=== PATIENT | female | born 1990 | race Hispanic/Latino ===

== ENCOUNTER 2017-04-02 23:45 | Emergency (ER) | payer OTHER ==
[2017-04-03 00:04] VITALS: BMI 21.6
[2017-04-03] MEDS ORDERED: Sodium Chloride 0.9% 1,000 ML IV ONE (00:04)
[2017-04-03 00:15] LABS: BASO # 0.1 K/uL (0.0-0.2); EOS # 0.1 K/uL (0.0-0.7); HEMOGLOBIN 13.3 g/dL (11.0-16.0); MONO # 0.6 K/uL (0.0-0.8)
[2017-04-03 00:22] LABS: BASO % 0.7 % (0.0-2.0); EOS % 1.1 % (0.0-4.0); LYMPH # 1.8 K/uL (1.0-4.3); LYMPH % 23.1 % (20.0-40.0); MEAN CELL VOLUME 92.4 fL (81.0-99.0); MEAN CORPUSCULAR HEMOGLOBIN 31.2 pg (27.0-31.0); MEAN CORPUSCULAR HGB CONC 33.8 g/dL (33.0-37.0); MONO % 7.8 % (0.0-10.0); NEUT # 5.2 K/uL (1.8-7.0); NEUT % 67.3 % (50.0-75.0); RBC 4.27 Mil/uL (3.80-5.20); RED CELL DISTRIBUTION WIDTH 13.4 % (11.5-14.5); WHITE BLOOD COUNT 7.8 K/uL (4.8-10.8)
[2017-04-03 00:29] LABS: ALB/GLOB RATIO 1.7 (1.0-2.1); ALBUMIN 3.9 g/dL (3.5-5.0); ALT/SGPT 20 U/L (9-52); AST/SGOT 17 U/L (14-36); BLOOD UREA NITROGEN 17 mg/dL (7-17); CALCIUM 8.1 mg/dl (8.6-10.4); GFR AFRICAN-AMERICAN > 60; GFR NON-AFRICAN AMERICAN > 60; LIPASE 89 U/L (23-300)
[2017-04-03 00:31] LABS: SQUAMOUS EPITHIAL < 1 /hpf (0-5); URINE BILIRUBIN NEGATIVE (NEGATIVE); URINE BLOOD NEGATIVE (NEGATIVE); URINE CLARITY Clear (Clear); URINE COLOR Yellow (YELLOW); URINE GLUCOSE (UA) NORMAL (Normal); URINE LEUKOCYTE ESTERASE NEG Leu/uL (Negative); URINE NITRATE NEGATIVE (NEGATIVE); URINE PROTEIN NEGATIVE (NEGATIVE); URINE UROBILINOGEN NORMAL mg/dL (0.2-1.0)
[2017-04-03 00:33] LABS: HCG,QUALITATIVE URINE NEGATIVE (NEGATIVE)
--- NOTE | 2017-04-03 01:16 | C.PDOC ---
History Of Present Illness 26 year old female was brought to the ED by EMS after transient syncopal episode just prior to arrival. Patient states she ate a turkey burger for dinner and was sitting watching television when she suddenly became very nauseated. She tried to sleep but could not and walked to the bathroom with the syncopal episode occurred causing her to fall and hit her head on the toilet. Patient denies fever, headache, or other complaints at this time. Time Seen by Provider: 04/02/17 23:58 Chief Complaint (Nursing): Syncope History Per: Patient History/Exam Limitations: no limitations Onset/Duration Of Symptoms: Hrs Current Symptoms Are (Timing): Still Present Number Of Syncopal Episodes: 1 Activity At Onset Of Symptoms: Walking Seizure Or Post-ictal Symptoms: None Fall Associated With With Symptoms: Positive Injury Recent travel outside of the [place]: No Additional History Per: EMS Past Medical History Reviewed: Historical Data, Nursing Documentation, Vital Signs Vital Signs: Last Vital Signs Temp 97.9 F 04/03/17 00:01 Pulse 48 L 04/03/17 00:01 Resp 18 04/03/17 00:01 BP 122/75 04/03/17 00:01 Pulse Ox 96 04/03/17 01:21 Family History: States: Unknown Family Hx - Social History Hx Alcohol Use: Yes Hx Substance Use: No - Immunization History Hx Tetanus Toxoid Vaccination: No Hx Influenza Vaccination: No Hx Pneumococcal Vaccination: No Review Of Systems Constitutional: Negative for: Fever, Chills Cardiovascular: Negative for: Chest Pain Respiratory: Negative for: Shortness of Breath Gastrointestinal: Positive for: Nausea. 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) Respiratory: Normal Breath Sounds, No Wheezing Gastrointestinal/Abdominal: Soft, No Tenderness, No Distention, No Guarding, No Rebound Extremity: Normal ROM, No Tenderness Neurological/Psych: Oriented x3, Normal Speech, Normal Cognition, Normal Cranial Nerves, Normal Motor, Normal Sensation ED Course And Treatment - Laboratory Results Result Diagrams: 04/03/17 00:10 04/03/17 00:10 Lab Interpretation: Normal (trop neg.) ECG: Interpreted By Me ECG Rhythm: Sinus Rhythm ECG Interpretation: Normal (runner, baseline bradycardia) Rate From EC O2 Sat by Pulse Oximetry: 96 (room air ) Pulse Ox Interpretation: Normal - CT Scan/US CT Head Without Intravenous Contrast Other Rad Studies (CT/US): Read By Radiologist, Radiology Report Reviewed CT/US Interpretation: IMPRESSION: Small anterior scalp hematoma. Progress Note: Pepcid, zofran, toradol IV fluids. EKG and CT ordered. Reevaluation Time: 01:35 Reassessment Condition: Improved Medical Decision Making Medical Decision Making: frontal contusion with ? near syncope in bathroom due to nausea/vomiting consider food intox improved with ED tx. w/u neg. Disposition Doctor Will See Patient In The: Office Counseled Patient/Family Regarding: Studies Performed, Diagnosis - Disposition Disposition: HOME/ ROUTINE Disposition Time: 01:36 Condition: GOOD Forms: [facility] (Romansh) - Clinical Impression Clinical Impression: Near syncope, Head contusion, Syncope - Scribe Statement The provider has reviewed the documentation as recorded by the Scribfrancy Conroy All medical record entries made by the Aliyaibe were at my direction and personally dictated by me. I have reviewed the chart and agree that the record accurately reflects my personal performance of the history, physical exam, medical decision making, and the department course for this patient. I have also personally directed, reviewed, and agree with the discharge instructions and disposition.
[2017-04-03 01:17] LABS: BARBITURATES, UR NEGATIVE (NEGATIVE); BENZODIAZEPINES, UR NEGATIVE (NEGATIVE)
[2017-04-03 01:24] LABS: OPIATES, UR NEGATIVE (NEGATIVE)
[2017-04-03 01:25] LABS: PHENCYCLIDINE, UR NEGATIVE (NEGATIVE)
[2017-04-03 02:00] VITALS: BP 130/76; PULSE 80; RESP 16; TEMP 98; O2SAT 100
--- NOTE | 2017-04-03 08:10 | CT ---
PROCEDURE: CT HEAD WITHOUT CONTRAST. HISTORY: Syncope. Trauma. COMPARISON: None available. TECHNIQUE: Axial computed tomography images were obtained through the head/brain without intravenous contrast. Radiation dose: Total exam DLP = 785 mGy-cm. This CT exam was performed using one or more of the following dose reduction techniques: Automated exposure control, adjustment of the mA and/or kV according to patient size, and/or use of iterative reconstruction technique. FINDINGS: HEMORRHAGE: No intracranial hemorrhage. BRAIN: No mass effect or edema. No atrophy or chronic microvascular ischemic changes. Punctate calcification seen within the posterior left temporal lobe. VENTRICLES: Unremarkable. No hydrocephalus. CALVARIUM: Unremarkable. PARANASAL SINUSES: Unremarkable as visualized. No significant inflammatory changes. MASTOID AIR CELLS: Unremarkable as visualized. No inflammatory changes. OTHER FINDINGS: Small anterior scalp hematoma. IMPRESSION: Small anterior scalp hematoma. If focal neurologic deficit persists, consider MRI. These findings were preliminarily reported at 12:47 a.m. on 04/03/[address] Chang Robledo from [facility].
--- NOTE | 2017-04-03 14:21 | CARD ---
APPROVED REPORT EKG Measurement Heart [id number] <Conclusion> Sinus bradycardia with sinus arrhythmia Otherwise normal ECG
== END 2017-04-03 01:45 | disposition home or self-care (01) ==
LOC: EDBD 23:45 → C.ER 23:45
DX: S00.83XA Contusion of other part of head, initial encounter (principal); W18.39XA Other fall on same level, initial encounter; Y92.002 Bathroom of unspecified non-institutional (private) residence as the place of occurrence of the external cause; R55 Syncope and collapse
CPT/HCPCS: 70450; 80053; 80320; 80324; 80345; 80346; 80349; 80353; 80358; 80361; 81001; 82948; 83690; 83992; 84484; 84703; 85025; 93005; 96374; 96375; 99285; J1885; J2405; J7040